=== PATIENT | female | born 1995 | race Caucasian/White ===

== ENCOUNTER 2022-10-26 16:51 | Emergency (ER) | payer OTHER, SELFPAY ==
[2022-10-26 17:03] VITALS: BP 132/63; PULSE 102; RESP 16; TEMP 37; O2SAT 100
--- NOTE | 2022-10-26 17:45 | ED.LOWEXIN ---
HPI - Extremity Injury (Lower) General Chief Complaint: Extremity Injury, Lower Stated Complaint: injury to left big toe History of Present Illness HPI Narrative: PATIENT PRESENTS WITH BRUISING AND DISCOMFORT TO LEFT GREAT TOE STATES SHE STUBED HER TOE THIS AM NO DEFORMITY PATIENT IS 32 WEEKS WITH NO RELATED PROBLEMS Related Data Home Medications Medication Instructions Recorded Confirmed aspirin 81 mg tablet,delayed mg 10/26/22 release Allergies Allergy/AdvReac Type Severity Reaction Status Date / Time No Known Allergies Allergy Verified 10/26/22 17:01 Review of Systems Review of Systems: CONSTITUTIONAL: DENIES FEVER, CHILLS, OR SWEATS. EYES: DENIES VISUAL CHANGES, REDNESS, OR DISCHARGE. ENT: DENIES RHINORRHEA, CONGESTION, SORE THROAT, OR OTALGIA. CARDIOVASCULAR: DENIES CHEST PAIN, PALPITATIONS, OR EDEMA. RESPIRATORY: DENIES COUGH OR DYSPNEA. GASTROINTESTINAL: DENIES ABDOMINAL PAIN, NAUSEA, VOMITING, OR DIARRHEA. GENITOURINARY: DENIES DYSURIA OR HEMATURIA. SKIN: DENIES RASH OR ITCHING. MUSCULOSKELETAL: DENIES BACK PAIN, JOINT PAIN, OR MYALGIA. NEUROLOGIC: DENIES HEADACHE, NUMBNESS, OR WEAKNESS. PSYCHIATRIC: DENIES ANXIETY OR DEPRESSION. PMFSH Comments AT TIME OF SIGNATURE, AGREE WITH NURSING PAST MEDICAL, SURGICAL, SOCIAL AND FAMILY HISTORY. THERE IS NO RELEVANT FAMILY HISTORY PERTINENT TO THE PRESENTING COMPLAINT Exam Narrative: GENERAL: WELL-APPEARING, WELL-NOURISHED, AND IN NO ACUTE DISTRESS. HEAD: NORMOCEPHALIC, ATRAUMATIC. EYES: PERRLA AND EOMI. ENT: NARES CLEAR, NO RHINORRHEA OR EPISTAXIS. MUCOUS MEMBRANES MOIST. NECK: SUPPLE. CHEST: CLEAR TO AUSCULTATION. NO RESPIRATORY DISTRESS. HEART: REGULAR RATE AND RHYTHM. NO MURMUR HEARD. NORMAL PERIPHERAL PULSES. ABDOMEN: SOFT, NONTENDER, NONDISTENDED, NORMAL ACTIVE BOWEL SOUNDS. EXTREMITIES: NORMAL RANGE OF MOTION. NO EDEMA. FOOT EXAM ANKLE ANKLE EXAM SKIN INTACT. NORMAL DP PULSE, NORMAL CAP REFILL. NORMAL SENSATION. BRUISING TO LEFT GREAT TOE SKIN: WARM, DRY, NO RASH. NEURO: NO FOCAL DEFICITS. ALERT AND ORIENTED X3. ROSY COMA SCALE EYE OPENING: SPONTANEOUS 4 ROSY COMA SCALE MOTOR: OBEYS COMMANDS 6 ROSY COMA SCALE VERBAL: ORIENTED 5 ROSY COMA SCALE TOTAL 15 Course Course Level of Care: Express Care Visit Vital Signs Vital signs: Vital Signs Temperature 37.0 C 10/26/22 17:03 Pulse Rate 102 H 10/26/22 17:03 Respiratory Rate 16 10/26/22 17:03 Blood Pressure 132/63 10/26/22 17:03 Pulse Oximetry 100 10/26/22 17:03 Oxygen Delivery Room Air 10/26/22 17:03 Temperature 37.0 C 10/26/22 17:03 Pulse Rate 102 H 10/26/22 17:03 Respiratory Rate 16 10/26/22 17:03 Blood Pressure 132/63 10/26/22 17:03 Pulse Oximetry 100 10/26/22 17:03 Oxygen Delivery Room Air 10/26/22 17:03 DISCUSSED XRAY WITH PATIENT PATIENT DECLIINES XRAY AT THIS TIME WILL FOLLOW UP WITH OB IN 1-2 DAYS FOR RE EVALUATION. Discharge Plan Discharge Clinical Impression: Injury of toe Patient Disposition: Home, Self-Care Condition: Stable Instructions: Foot Contusion (ED) Additional Instructions: ICE TO THE AREA 20-30 MINUTES 4-6 TIMES A DAY ELEVATE ABOVE HEART ELASTIC WRAP OR ORTHOPEDIC SPLINT DIRECTED FOR COMFORT FOR THE NEXT 5-7 DAYS TYLENOL FOR LESSER PAIN FOR THE NEXT 2-3 DAYS FOR THE INFLAMMATION FOLLOW-UP WITH PCP IF FURTHER PROBLEMS OR CONCERNS -IF YOU HAVE ANY WORSENING OF SYMPTOMS OR ANY OTHER CONCERNS PLEASE GO TO THE ED IMMEDIATELY. Prescriptions: No Action aspirin 81 mg tablet,delayed release (DR/EC) Follow-up/Referrals: PHYSICIAN NOT ON STAFF,NONSTAFF [Primary Care Provider] -
== END 2022-10-26 17:53 | disposition home or self-care (01) ==
PROVIDERS: Emergency Provider Nurse Practitioner Family
DX: O9A.213 Injury, poisoning and certain other consequences of external causes complicating pregnancy, third trimester (principal); Z3A.32 32 weeks gestation of pregnancy; S90.112A Contusion of left great toe without damage to nail, initial encounter; X58.XXXA Exposure to other specified factors, initial encounter
CPT/HCPCS: 99212; G0463